=== PATIENT | female | born 1965 ===

== ENCOUNTER 2017-11-10 08:43 | Day surgery (SDC) | payer BC ==
[2017-11-10] MEDS ORDERED: Lactated Ringer's 1,000 ML IV ONE (09:09)
[2017-11-10] MEDS ORDERED: Propofol 10 mg/ml Inj (20 ML) ONE (09:22)
[2017-11-10] MEDS ORDERED: Lidocaine 2% MPF (5 ml) Inj ONE (09:23)
[2017-11-10 10:42] VITALS: PULSE 54; RESP 16; TEMP 97.2; O2SAT 97
[2017-11-10 10:46] VITALS: BP 99/74
== END 2017-11-10 11:21 | disposition home or self-care (01) ==
LOC: H.ENDO 08:43
PROVIDERS: ATTEND Internal Medicine Gastroenterology
DX: Z12.11 Encounter for screening for malignant neoplasm of colon (principal); M54.9 Dorsalgia, unspecified; K64.8 Other hemorrhoids; D12.7 Benign neoplasm of rectosigmoid junction; K29.50 Unspecified chronic gastritis without bleeding; K62.1 Rectal polyp; K30 Functional dyspepsia; K44.9 Diaphragmatic hernia without obstruction or gangrene; K29.70 Gastritis, unspecified, without bleeding
CPT/HCPCS: 43239; 45385; 88305; J2704; J7120